=== PATIENT | male | born 1980 | race Caucasian/White ===

== ENCOUNTER 2020-11-28 22:26 | Emergency (ER) | payer OTHER ==
[2020-11-28 22:58] LABS: BASOPHIL 0.3 % (0-2); HCT 42.4 % (42.0-52.0); HGB 14.6 g/dl (13.2-18.0); LYMPHOCYTE 31.3 % (15-48); MCH 32.7 pg (25.0-31.0); MCHC 34.4 g/dL (32.0-36.0); MCV 94.9 fL (78.0-100.0); MONOCYTE 7.4 % (0-12); MPV 10.6 fL (6.0-9.5); NEUTROPHIL 57.5 % (41-80); NRBC 0; PLT 162 K/uL (150-400); RBC 4.47 M/uL (4.70-6.00); RDW 13.8 % (11.5-14.0); WBC 9.8 K/uL (4.0-10.5)
[2020-11-28 23:16] LABS: ALBUMIN 3.5 g/dL (3.4-5.0); BILIRUBIN - TOTAL 0.4 mg/dL (0.2-1.0); BUN/CREAT RATIO (CALC) 11.2 RATIO; CREATININE 0.98 mg/dL (0.67-1.17); TOTAL PROTEIN 6.5 g/dL (6.4-8.2)
[2020-11-28 23:25] LABS: INR 0.97 (0.9-1.2); PROTHROMBIN TIME 12.3 SECONDS (11.8-13.4); PTT 27.3 SECONDS (24.4-34.7)
[2020-11-29] MEDS ORDERED: CEFPODOXIME PR200 MG PO (00:47)
[2020-11-29] MEDS ORDERED: G TUSSIN AC LI118 ML PO (00:47)
[2020-11-29] MEDS ORDERED: AZITHROMYCIN250 MG PO (00:47)
== END 2020-11-29 01:58 | disposition home or self-care (01) ==
LOC: FER 22:26
PROVIDERS: Internal Medicine
DX: J18.9 Pneumonia, unspecified organism (principal); E87.0 Hyperosmolality and hypernatremia; Z88.8 Allergy status to other drugs, medicaments and biological substances; Z88.6 Allergy status to analgesic agent; Z91.010 Allergy to peanuts; Z20.822 Contact with and (suspected) exposure to COVID-19
CPT/HCPCS: 36415; 71045; 80053; 84145; 84484; 85025; 85610; 85730; 93005; J0456; J7050; U0002

== ENCOUNTER 2020-12-27 07:39 | Emergency (ER) | payer SELFPAY ==
[~2020-12-27 07:39] MED LIST: AZITHROMYCIN250 MG PO; CEFPODOXIME PR200 MG PO; G TUSSIN AC LI118 ML PO
[2020-12-27 08:24] LABS: BASOPHIL 0.4 % (0-2); EOSINOPHIL 3.9 % (0-5); HCT 45.2 % (42.0-52.0); HGB 15.4 g/dl (13.2-18.0); LYMPHOCYTE 30.8 % (15-48); MCH 32.6 pg (25.0-31.0); MCHC 34.1 g/dL (32.0-36.0); MCV 95.8 fL (78.0-100.0); MONOCYTE 6.9 % (0-12); MPV 10.7 fL (6.0-9.5); NEUTROPHIL 57.3 % (41-80); NRBC 0; PLT 157 K/uL (150-400); RBC 4.72 M/uL (4.70-6.00); RDW 13.7 % (11.5-14.0)
[2020-12-27 08:34] LABS: ALBUMIN 3.4 g/dL (3.4-5.0); BILIRUBIN - TOTAL 0.4 mg/dL (0.2-1.0); BUN/CREAT RATIO (CALC) 16.7 RATIO; CREATININE 0.84 mg/dL (0.67-1.17); GLOBULIN (CALCULATION) 3.3 g/dL; POTASSIUM 3.7 mmol/L (3.5-5.1); TOTAL PROTEIN 6.7 g/dL (6.4-8.2)
[2020-12-27 09:19] LABS: BILIRUBIN NEGATIVE (NEGATIVE); BLOOD 2+ Ery/uL (NEGATIVE); CLARITY CLEAR (CLEAR); COLOR YELLOW (YELLOW); GLUCOSE (U) NORMAL (NORMAL); LEUKOCYTES NEGATIVE Leu/uL (NEGATIVE); NITRITE NEGATIVE (NEGATIVE); PROTEIN NEGATIVE (NEGATIVE); UROBILINOGEN 0.2 mg/dL (0.2-1.0); pH 6.5 (5.0-9.0)
[2020-12-27 09:32] LABS: BACTERIA TRACE; URINARY WBC RARE
[2020-12-27] MEDS ORDERED: ONDANSETRON ODT4 MG PO (10:04)
[2020-12-27] MEDS ORDERED: PERCOCET 5-3251 EACH PO (10:04)
[2020-12-27] MEDS ORDERED: NAPROXEN500 MG PO (10:04)
== END 2020-12-27 10:19 | disposition home or self-care (01) ==
LOC: FER 07:39
PROVIDERS: Internal Medicine
DX: R10.32 Left lower quadrant pain (principal); R31.9 Hematuria, unspecified; F17.210 Nicotine dependence, cigarettes, uncomplicated; Z88.6 Allergy status to analgesic agent; Z88.8 Allergy status to other drugs, medicaments and biological substances
CPT/HCPCS: 36415; 80053; 81001; 85025; J1170; J2405; J7030

== ENCOUNTER 2021-04-11 19:30 | Emergency (ER) | payer SELFPAY ==
[~2021-04-11 19:30] MED LIST changes: +NAPROXEN500 MG PO; +ONDANSETRON ODT4 MG PO; +PERCOCET 5-3251 EACH PO
[2021-04-11 20:10] LABS: BASOPHIL 0.4 % (0-2); EOSINOPHIL 3.4 % (0-5); HCT 46.2 % (42.0-52.0); HGB 16.1 g/dl (13.2-18.0); LYMPHOCYTE 32.4 % (15-48); MCH 32.9 pg (25.0-31.0); MCHC 34.8 g/dL (32.0-36.0); MCV 94.5 fL (78.0-100.0); MONOCYTE 6.1 % (0-12); MPV 10.9 fL (6.0-9.5); NEUTROPHIL 57.2 % (41-80); NRBC 0; PLT 147 K/uL (150-400); RBC 4.89 M/uL (4.70-6.00); RDW 13.1 % (11.5-14.0)
[2021-04-11 20:24] LABS: ALBUMIN 4.2 g/dL (3.4-5.0); BILIRUBIN - TOTAL 0.3 mg/dL (0.2-1.0); BUN/CREAT RATIO (CALC) 12.3 RATIO; CREATININE 1.14 mg/dL (0.67-1.17); GLOBULIN (CALCULATION) 2.9 g/dL; TOTAL PROTEIN 7.1 g/dL (6.4-8.2)
[2021-04-11] MEDS ORDERED: ULTRAM50 MG PO (20:58)
== END 2021-04-11 21:09 | disposition home or self-care (01) ==
LOC: FER 19:30
PROVIDERS: Emergency Medicine
DX: R10.12 Left upper quadrant pain (principal)
CPT/HCPCS: 36415; 80053; 83690; 84145; 85025

== ENCOUNTER 2021-04-26 22:41 | Emergency (ER) | payer SELFPAY ==
[~2021-04-26 22:41] MED LIST changes: +ULTRAM50 MG PO
[2021-04-26 23:46] LABS: BASOPHIL 0.4 % (0-2); HGB 16.2 g/dl (13.2-18.0); LYMPHOCYTE 32.2 % (15-48); MCH 33.1 pg (25.0-31.0); MCHC 35.2 g/dL (32.0-36.0); MCV 93.9 fL (78.0-100.0); MONOCYTE 8.3 % (0-12); MPV 10.7 fL (6.0-9.5); NEUTROPHIL 54.5 % (41-80); NRBC 0; PLT 152 K/uL (150-400); RDW 13.1 % (11.5-14.0); WBC 10.6 K/uL (4.0-10.5)
[2021-04-27 00:10] LABS: BILIRUBIN - TOTAL 0.3 mg/dL (0.2-1.0); BUN/CREAT RATIO (CALC) 14.6 RATIO; CREATININE 0.82 mg/dL (0.67-1.17); GLOBULIN (CALCULATION) 3.2 g/dL; POTASSIUM 3.7 mmol/L (3.5-5.1); TOTAL PROTEIN 7.2 g/dL (6.4-8.2)
== END 2021-04-27 01:46 | disposition home or self-care (01) ==
LOC: FER 22:41
PROVIDERS: Emergency Medicine
DX: R07.9 Chest pain, unspecified (principal); R10.9 Unspecified abdominal pain; F17.200 Nicotine dependence, unspecified, uncomplicated; Z88.8 Allergy status to other drugs, medicaments and biological substances; Z88.6 Allergy status to analgesic agent
CPT/HCPCS: 36415; 71275; 80053; 83690; 84484; 85025; J1885; J7030; Q9967

== ENCOUNTER 2021-06-24 00:43 | Emergency (ER) | payer SELFPAY ==
[~2021-06-24 00:43] MED LIST changes: +PHENERGAN25 M1 PO
[2021-06-24 02:13] LABS: BASOPHIL 0.5 % (0-2); EOSINOPHIL 4.5 % (0-5); HCT 43.4 % (42.0-52.0); HGB 15.3 g/dl (13.2-18.0); LYMPHOCYTE 36.9 % (15-48); MCH 33.6 pg (25.0-31.0); MCHC 35.3 g/dL (32.0-36.0); MCV 95.2 fL (78.0-100.0); MONOCYTE 6.7 % (0-12); MPV 10.7 fL (6.0-9.5); NEUTROPHIL 50.7 % (41-80); NRBC 0; PLT 135 K/uL (150-400); RBC 4.56 M/uL (4.70-6.00); WBC 9.5 K/uL (4.0-10.5)
[2021-06-24 02:28] LABS: BUN/CREAT RATIO (CALC) 12.4 RATIO; CREATININE 0.89 mg/dL (0.67-1.17); POTASSIUM 3.9 mmol/L (3.5-5.1)
[2021-06-24] MEDS ORDERED: VIBRAMYCIN100 MG PO (03:16)
[2021-06-24] MEDS ORDERED: VENTOLIN HFA IN18 GM INH (03:16)
[2021-06-24] MEDS ORDERED: PREDNISONE 20MG20 MG PO (03:16)
[2021-06-24] MEDS ORDERED: PROMETHAZINE/C120 ML PO (03:16)
[2021-06-24] MEDS ORDERED: G TUSSIN AC LI118 ML PO ×2 (03:22→15:26)
== END 2021-06-24 03:34 | disposition home or self-care (01) ==
LOC: FER 00:43
PROVIDERS: Internal Medicine
DX: J01.90 Acute sinusitis, unspecified (principal); R06.2 Wheezing; F17.210 Nicotine dependence, cigarettes, uncomplicated; Z28.310 Unvaccinated for COVID-19; Z88.5 Allergy status to narcotic agent; Z88.6 Allergy status to analgesic agent; Z91.010 Allergy to peanuts
CPT/HCPCS: 36415; 71045; 80048; 84145; 85025; 94640; 94664; J1100

== ENCOUNTER 2021-10-19 15:24 | Emergency (ER) | payer SELFPAY ==
[~2021-10-19 15:24] MED LIST changes: +PREDNISONE 20MG20 MG PO; +PROMETHAZINE/C120 ML PO; +VENTOLIN HFA IN18 GM INH; +VIBRAMYCIN100 MG PO
[2021-10-19] MEDS ORDERED: CYCLOBENZAPRINE10 MG PO (17:23)
== END 2021-10-19 18:30 | disposition home or self-care (01) ==
LOC: FER 15:24
DX: M54.50 Low back pain, unspecified (principal); F17.210 Nicotine dependence, cigarettes, uncomplicated; Z28.310 Unvaccinated for COVID-19; Z88.6 Allergy status to analgesic agent; Z88.8 Allergy status to other drugs, medicaments and biological substances
CPT/HCPCS: 72131